=== PATIENT | male | born 1995 | race African-American/Black ===

== ENCOUNTER 2017-05-24 09:07 | Emergency (ER) | payer MEDICAID, OTHER ==
[~2017-05-24] VITALS: Ht 188 cm; Wt 96.6 kg
--- NOTE | 2017-05-24 09:32 | NUR ---
pt to ed room 13: Abdominal cramping and discomfort with nausea x 2 days. a/a/o. ambulatory with steady gait. side raisl up. hob elevated,. connected to monitor. seen and evaluiated by ed provider.
[2017-05-24] MEDS ORDERED: ONDANSETRON 4 MG TAB.RAPDIS ONE (09:39)
--- NOTE | 2017-05-24 09:43 | NUR ---
BLOOD DRAW AT BEDSIDE
[2017-05-24 09:46] LABS: EOSINOPHILS % (AUTO) 1.7 % (0.0-6.0); HEMATOCRIT 29 % (39-51); HEMOGLOBIN 9.5 g/dL (13.5-17.5); LYMPHOCYTES % (AUTO) 26.1 % (20.0-44.0); MEAN CORPUSCULAR HGB CONC 32 g/dl (31.0-36.0); MEAN CORPUSCULAR VOLUME 76 fL (80-96); MONOCYTES # (AUTO) 0.4 /CMM (0.1-1.30); MONOCYTES % (AUTO) 10.2 % (2.0-12.0); NEUTROPHILS # (AUTO) 2.4 /CMM (1.8-8.9); PLATELET COUNT (AUTO) 339 /CMM (150-450); RDW COEFFICIENT OF VARIATION 17.1 (11.5-15.0); RED BLOOD CELL COUNT(AUTO) 3.86 MIL/uL (4.5-6.0); WHITE BLOOD COUNT (AUTO) 3.9 K/uL (4.3-11.0)
[2017-05-24 09:55] LABS: APPEARANCE,URINE Clear (CLEAR); BILIRUBIN,URINE Negative (NEGATIVE); BLOOD, URINE Negative Ery/uL (NEGATIVE); COLOR,URINE Yellow (YELLOW); KETONES,URINE Negative (NEGATIVE); LEUKOCYTE ESTERASE ,URINE Negative (NEGATIVE); NITRITE, URINE Negative (NEGATIVE); PH,URINE 7.5 (5.0-8.0); PROTEIN,URINE Negative (NEGATIVE); UGLUCOSE Negative (NEGATIVE); UROBILINOGEN,URINE 0.2 EU/dL (0.2)
[2017-05-24 09:55] LABS: CALCIUM, SERUM 8.5 mg/dL (8.5-10.1); POTASSIUM 4.7 mmol/L (3.5-5.1)
[2017-05-24] MEDS ORDERED: ONDANSETRON 4 MG TAB.RAPDIS PO ONE (10:00)
[2017-05-24 10:01] LABS: ALBUMIN 3.4 g/dL (3.4-5.0); BILIRUBIN,DIRECT 0.1 mg/dL (0.0-0.2); BILIRUBIN,TOTAL 0.3 mg/dL (0.2-1.0); TOTAL PROTEIN, SERUM 7.5 g/dL (6.4-8.2)
--- NOTE | 2017-05-24 10:10 | NUR ---
L AC G 20 IV STARTED, CONVERTED TO SALINE LOCK
[2017-05-24] MEDS ORDERED: IV NS 0.9% 500 ML BAG IV ONE (10:30)
[2017-05-24 10:52] VITALS: BP 131/72
--- NOTE | 2017-05-24 10:52 | NUR ---
Patient discharged to home in stable condition. Written and verbal after care instructions given. Patient verbalizes understanding of instruction.IV removed. Catheter intact and site benign. Pressure and 4x4 applied to site. No bleeding noted. ambulatory with a steady gait.
== END 2017-05-24 10:55 | disposition home or self-care (01) ==
LOC: ER 09:09
DX: R10.9 Unspecified abdominal pain (principal); R11.0 Nausea
CPT/HCPCS: 36415; 80048-TC; 80076-TC; 81000-TC; 83690-TC; 85025-TC; A4606; J7040; Q0162; Z7610